=== PATIENT | male | born 1980 | race Caucasian/White ===

== ENCOUNTER 2021-06-17 20:15 | Emergency (ER) | payer OTHER ==
[~2021-06-17] VITALS: Ht 175.3 cm; Wt 106.0 kg
[2021-06-17 20:52] VITALS: BP 162/95
[2021-06-17] MEDS ORDERED: predniSONE 20 mg tablet PO ONE (21:40)
[2021-06-17] MEDS ORDERED: ketorolac trometh. 30mg/ml inj. IM ONE (21:40)
== END 2021-06-17 22:00 | disposition home or self-care (01) ==
LOC: ER 20:17
DX: M10.9 Gout, unspecified (principal)
CPT/HCPCS: 73630; 96372; 99283; J1885; J7512